=== PATIENT | male | born 1950 | race Caucasian/White ===

== ENCOUNTER → 2018-07-05 13:10 | Outpatient (REF) | payer OTHER, SELFPAY ==
[2018-07-05 14:49] LABS: COMMENT (LAB VIEW ONLY) 116.33 mg/dL; Microalb ug/mg Crea 59.5 ug/mg Cr
== END ==
LOC: LBN 13:10
PROVIDERS: PCP Nurse Practitioner; Visit Provider Nurse Practitioner
DX: E11.9 Type 2 diabetes mellitus without complications (principal); I10 Essential (primary) hypertension
CPT/HCPCS: 82043; 82570

== ENCOUNTER 2018-12-15 07:46 | Outpatient (CLI) | payer OTHER, SELFPAY ==
[2018-12-15 08:49] LABS: HCT 42.4 % (40.0-50.0); Mean Corpuscular Volume 90.8 fL (80-95); Mean Platelet Volume 8.4 fL (8.0-11.0); Platelet Count 166 x1000/uL (130-400); RBC 4.67 m/cumm (4.50-6.00); RBC Distribution Width 13.1 % (11.8-14.1); White Blood Cell Count 4.69 k/cumm (4.4-10.8)
[2018-12-15 09:03] LABS: Hemoglobin A1C 7.8 % (4.5-6.2)
[2018-12-15 09:04] LABS: ALT 51 U/L (12-78); AST 32 U/L (15-37); Albumin 3.7 g/dL (3.4-5.0); Alkaline Phosphatase 74 U/L (46-116); Anion Gap 9.2 mmol/L (3-11); BUN 21 mg/dL (7-18); Bilirubin, Total 0.3 mg/dL (0.2-1.0); CO2 25.8 mmol/L (21.0-32.0); CREATININE 0.97 mg/dL (0.70-1.30); Calcium 9.3 mg/dL (8.5-10.1); Chloride 105 mmol/L (98-107); Cholesterol 164 mg/dL (50-200); Glucose 186 mg/dL (70-100); HDL Cholesterol 37 mg/dL (40-60); LDL CHOLESTEROL 100 mg/dL (<100); Potassium 4.9 mmol/L (3.5-5.1); Sodium 140 mmol/L (136-145); Total Protein 7.4 g/dL (6.4-8.2); Triglyceride 148 mg/dL (30-150)
== END 2018-12-15 08:06 ==
PROVIDERS: PCP Nurse Practitioner; Visit Provider Nurse Practitioner
DX: E11.9 Type 2 diabetes mellitus without complications (principal); I10 Essential (primary) hypertension
CPT/HCPCS: 36415; 80053; 80061; 83721; 85027; 83036

== ENCOUNTER 2019-12-12 07:12 | Outpatient (CLI) | payer OTHER, SELFPAY ==
[2019-12-12 07:55] LABS: Hemoglobin A1C 8.8 % (3.8-5.6)
[2019-12-12 09:36] LABS: ALT 47 U/L (16-63); AST 25 U/L (15-37); Albumin 3.9 g/dL (3.4-5.0); Alkaline Phosphatase 60 U/L (46-116); Anion Gap 13.2 mmol/L (3-11); BUN 21 mg/dL (7-18); Bilirubin, Total 0.4 mg/dL (0.2-1.0); CO2 22.8 mmol/L (21.0-32.0); Calcium 8.7 mg/dL (8.5-10.1); Calculated LDL 108 mg/dL (<100); Chloride 105 mmol/L (98-107); Cholesterol 175 mg/dL (<200); Glucose 179 mg/dL (74-106); HDL Cholesterol 37 mg/dL (40-60); Potassium 4.3 mmol/L (3.5-5.1); Sodium 141 mmol/L (136-145); Total Protein 7.1 g/dL (6.4-8.2); Triglyceride 152 mg/dL (<150)
== END 2019-12-12 07:32 ==
PROVIDERS: PCP Nurse Practitioner; Visit Provider Nurse Practitioner
DX: I10 Essential (primary) hypertension (principal); E11.9 Type 2 diabetes mellitus without complications; E66.9 Obesity, unspecified
CPT/HCPCS: 36415; 80053; 80061; 83036

== ENCOUNTER 2019-12-19 03:11 | Outpatient (CLI) | payer OTHER, SELFPAY ==
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
== END 2019-12-19 03:31 ==
PROVIDERS: PCP Nurse Practitioner; Visit Provider Dietitian, Registered
DX: E11.9 Type 2 diabetes mellitus without complications (principal); Z71.3 Dietary counseling and surveillance
CPT/HCPCS: 97803

== ENCOUNTER 2020-11-13 09:19 | Outpatient (REF) | payer OTHER, SELFPAY ==
[2020-11-13 18:13] LABS: HCT 44.7 % (40.0-50.0); HGB 14.6 g/dL (13.5-17.5); MCH 29.3 pg (27.0-33.0); MCHC 32.7 % (32.0-36.0); MCV 89.8 fL (80-95); MPV 9.4 fL (8.0-11.0); Platelet Count 145 10^3/uL (130-400); RBC 4.98 10^6/uL (4.36-5.78); RDW 13.2 % (11.8-14.1); WBC 4.83 10^3/uL (4.4-10.8)
[2020-11-13 18:29] LABS: ALT 50 U/L (16-63); AST 24 U/L (15-37); Albumin 3.9 g/dL (3.4-5.0); Alkaline Phosphatase 70 U/L (46-116); BUN 18 mg/dL (7-18); Bilirubin, Total 0.5 mg/dL (0.2-1.0); CREATININE 1.03 mg/dL (0.70-1.30); Calcium 8.8 mg/dL (8.5-10.1); Calculated LDL 96 mg/dL (<100); Chloride 104 mmol/L (98-107); Cholesterol 168 mg/dL (<200); Glucose 276 mg/dL (74-106); HDL Cholesterol 43 mg/dL (40-60); Potassium 4.3 mmol/L (3.5-5.1); Sodium 136 mmol/L (136-145); Total Protein 7.2 g/dL (6.4-8.2); Triglyceride 148 mg/dL (<150)
== END 2020-11-13 09:39 ==
LOC: LBN 09:19
PROVIDERS: PCP Nurse Practitioner; Visit Provider Nurse Practitioner
DX: I10 Essential (primary) hypertension (principal); E78.5 Hyperlipidemia, unspecified; E11.3299 Type 2 diabetes mellitus with mild nonproliferative diabetic retinopathy without macular edema, unspecified eye; E66.9 Obesity, unspecified
CPT/HCPCS: 80053; 80061; 85027

== ENCOUNTER 2020-11-15 00:38 | Outpatient (CLI) | payer OTHER, SELFPAY ==
--- NOTE | 2020-11-15 06:45 | DI.US_ITS ---
EXAM: US AAA SCREENING CLINICAL HISTORY: screening for aaa,z72.0,smoker COMPARISON: No exams were available for comparison FINDINGS: Dedicated ultrasound examination of the abdominal aorta was performed. There is no evidence of abdominal aortic aneurysm. Maximum diameter is 2.8 centimetres which is prox imally. There is satisfactory distal tapering of the aorta. The visualized upper aspect of the common iliac arteries exhibit upper normal diameters. IMPRESSION: No evidence of abdominal aortic aneurysm. DATA REPOSITORY:
== END 2020-11-15 00:58 ==
PROVIDERS: PCP Nurse Practitioner; Visit Provider Nurse Practitioner
DX: F17.210 Nicotine dependence, cigarettes, uncomplicated (principal)
CPT/HCPCS: 76706

== ENCOUNTER 2022-01-06 02:59 | Outpatient (CLI) | payer OTHER, SELFPAY ==
[2022-01-06 17:02] LABS: HCT 47.7 % (40.0-50.0); HGB 15.6 g/dL (13.5-17.5); MCHC 32.7 % (32.0-36.0); MCV 88.7 fL (80-95); Platelet Count 178 10^3/uL (130-400); RBC 5.38 10^6/uL (4.36-5.78); RDW 12.5 % (11.8-14.1); RDW-SD 41.1 fL; WBC 5.26 10^3/uL (4.4-10.8)
[2022-01-06 17:43] LABS: Hemoglobin A1C 8.4 % (<5.7)
[2022-01-06 18:42] LABS: ALT 50 U/L (16-63); AST 27 U/L (15-37); Albumin 4.3 g/dL (3.4-5.0); Alkaline Phosphatase 74 U/L (46-116); Anion Gap 8.6 mmol/L (3-11); BUN 15 mg/dL (7-18); Bilirubin, Total 0.8 mg/dL (0.2-1.0); CO2 28.4 mmol/L (21.0-32.0); CREATININE 0.9 mg/dL (0.70-1.30); Calcium 9.1 mg/dL (8.5-10.1); Calculated LDL 100 mg/dL (<100); Chloride 99 mmol/L (98-107); Cholesterol 173 mg/dL (<200); Glucose 107 mg/dL (74-106); HDL Cholesterol 44 mg/dL (40-60); Sodium 136 mmol/L (136-145); Total Protein 7.9 g/dL (6.4-8.2); Triglyceride 147 mg/dL (<150)
== END 2022-01-06 03:00 | disposition home or self-care (01) ==
PROVIDERS: PCP Nurse Practitioner; Visit Provider Nurse Practitioner
DX: E78.5 Hyperlipidemia, unspecified (principal); I10 Essential (primary) hypertension; E11.3299 Type 2 diabetes mellitus with mild nonproliferative diabetic retinopathy without macular edema, unspecified eye
CPT/HCPCS: 36415; 80053; 80061; 85027; 83036

== ENCOUNTER 2022-04-02 15:35 | Emergency (ER) | payer OTHER, SELFPAY ==
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
[2022-04-02 15:35] VITALS: BP 162/93; PULSE 92; RESP 18; TEMP 36.7; O2SAT 98
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
[2022-04-02] MEDS: Ibuprofen 600 MG TAB PO (16:49)
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
[2022-04-02 17:56] VITALS: BP 144/75; PULSE 84; RESP 16; TEMP 37; O2SAT 97
== END 2022-04-02 18:02 | disposition home or self-care (01) ==
PROVIDERS: Emergency Provider Emergency Medicine; PCP Nurse Practitioner
DX: S20.219A Contusion of unspecified front wall of thorax, initial encounter (principal); V49.59XA Passenger injured in collision with other motor vehicles in traffic accident, initial encounter; R07.9 Chest pain, unspecified
CPT/HCPCS: 93005; 99284; 71046; 71120; 93010; 99283

== ENCOUNTER 2022-04-05 08:32 | Emergency (ER) | payer OTHER, SELFPAY ==
[2022-04-05] VITALS (30 sets, daily range): BP systolic 147–192; BP diastolic 80–108; PULSE 63–85; RESP 10–22; TEMP 36.2–37.1; O2SAT 95–99
--- NOTE | 2022-04-05 08:30 | RT.EKG_ITS ---
APPROVED REPORT Exam: Resting ECG Reason for Exam: chest pain Patient Location: E HR:65 bpm ECG Measurements Heart Rate 65 AXIS OH 194 P 25 QRSd 99 QRS -5 QT 403 T 32 QTc 420 Conclusion Sinus rhythm...normal P axis, V-rate 60- 99 Probable lateral infarct, old...Q>35mS, abnormal ST-T, V5-6 I aVL sinus rhythm, left axis, normal intervals, non ischemic
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
[2022-04-05] MEDS: Normal Saline 500 ML 1000 ML IV (09:00)
[2022-04-05] MEDS: Ondansetron 4 MG/2 ML VIAL IVP (09:06)
[2022-04-05] MEDS: MORPHine 4 MG/ML SYR IVP (09:06)
[2022-04-05 09:08] LABS: Abs Immature Grans 0.03 10^3/uL (0.0-0.06); Absolute Basophil Count 0.03 10^3/uL (0.0-0.2); Absolute Eosinophil Count 0.12 10^3/uL (0.0-0.7); Absolute Lymphocyte Count 1.88 10^3/uL (1.2-3.4); Absolute Monocyte Count 0.54 10^3/uL (0.1-0.8); Basophils % 0.5; Eosinophils % 1.8; HGB 15.1 g/dL (13.5-17.5); Immature Grans % 0.5; Lymphocytes % 28.5; MCH 28.7 pg (27.0-33.0); MCHC 32.1 % (32.0-36.0); MCV 89 fL (80-95); MPV 8.1 fL (8.0-11.0); Monocytes % 8.2; Neutrophils % 60.5; Platelet Count 163 10^3/uL (130-400); RBC 5.26 10^6/uL (4.36-5.78); RDW 12.8 % (11.8-14.1); RDW-SD 41.9 fL
[2022-04-05 09:16] LABS: PTT Activated 25.6 sec (21.0-27.5); Prothrombin Time 10.4 sec (9.3-11.0)
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
[2022-04-05 09:22] LABS: ALT 41 U/L (16-63); AST 19 U/L (15-37); Albumin 4.2 g/dL (3.4-5.0); Alkaline Phosphatase 71 U/L (46-116); Anion Gap 6.8 mmol/L (3-11); BUN 17 mg/dL (7-18); Bilirubin, Total 0.6 mg/dL (0.2-1.0); CO2 30.2 mmol/L (21.0-32.0); Calcium 9.3 mg/dL (8.5-10.1); Chloride 103 mmol/L (98-107); Glucose 181 mg/dL (74-106); Potassium 4.5 mmol/L (3.5-5.1); Sodium 140 mmol/L (136-145); Total Protein 8.2 g/dL (6.4-8.2); Troponin I < 50 ng/L (<or=60)
--- NOTE | 2022-04-05 09:32 | DI.VRAD_ITS ---
PROCEDURE INFORMATION: Exam: XR Chest Exam date and time: 04/05/2022 9:11 AM Age: 72 years old Clinical indication: Pain; Left-sided TECHNIQUE: Imaging protocol: XR of the chest. Views: 1 view. COMPARISON: CR XR CHEST 2V PA LATERAL 04/02/2022 5:00 PM FINDINGS: Lungs: Opacities in the left base may represent atelectasis/pneumonia.. Pleural spaces: Unremarkable. No pleural effusion. No pneumothorax. Heart/Mediastinum: Unremarkable. No cardiomegaly. Bones/joints: Unremarkable. IMPRESSION: Opacities in the left base may represent atelectasis/pneumonia.. Dictated and Authenticated by: Feng Craig MD. Ordering:DWAYNE Medina MD
--- NOTE | 2022-04-05 10:09 | DI.VRAD_ITS ---
PROCEDURE INFORMATION: Exam: CT Chest Without Contrast; Diagnostic Exam date and time: 04/05/2022 9:57 AM Age: 72 years old Clinical indication: Pain; Other: Chest; Left-sided TECHNIQUE: Imaging protocol: Diagnostic computed tomography of the chest without contrast. COMPARISON: XR PORTABLE CHEST AP 04/05/2022 9:11 AM FINDINGS: Lungs: Opacities in the lower lobes may represent atelectasis or pneumonia.. Pleural spaces: Moderate left pleural effusion. Smaller right pleural effusion... Heart: Unremarkable. No cardiomegaly. No pericardial effusion. Lymph nodes: Unremarkable. No enlarged lymph nodes. Vasculature: Unremarkable. No aortic aneurysm. Bones/joints: Unremarkable. No acute fracture. Soft tissues: Unremarkable. IMPRESSION: 1. Moderate left pleural effusion. Smaller right pleural effusion... 2. Opacities in the lower lobes may represent atelectasis or pneumonia.. PROCEDURE INFORMATION: Exam: CT Abdomen And Pelvis Without Contrast Exam date and time: 04/05/2022 9:57 AM Age: 72 years old Clinical indication: Pain; Other: Chest; Left-sided TECHNIQUE: Imaging protocol: Computed tomography of the abdomen and pelvis without contrast. COMPARISON: US AAA SCREENING 11/15/2020 7:02 AM FINDINGS: Liver: Normal. No mass. Gallbladder and bile ducts: Normal. No calcified stones. No ductal dilation. Pancreas: Normal. No ductal dilation. Spleen: Normal. No splenomegaly. Adrenal glands: Normal. No mass. Kidneys and ureters: Normal. No hydronephrosis. Stomach and bowel: Unremarkable. No obstruction. No mucosal thickening. Appendix: No evidence of appendicitis. Intraperitoneal space: Unremarkable. No free air. No significant fluid collection. Vasculature: Unremarkable. No abdominal aortic aneurysm. Lymph nodes: Unremarkable. No enlarged lymph nodes. Urinary bladder: Unremarkable as visualized. Reproductive: Unremarkable as visualized. Bones/joints: Unremarkable. No acute fracture. Soft tissues: Mild inflammatory changes in the subcutaneous fat around the umbilicus. May be due to prior surgery. IMPRESSION: Mild inflammatory changes in the subcutaneous fat around the umbilicus. May be due to prior surgery. Dictated and Authenticated by: Feng Craig MD. Ordering:DWAYNE Medina MD
[2022-04-05] MEDS: Ketorolac 15 MG/ML VIAL IVP (10:33)
[2022-04-05] MEDS: Amoxicillin 875/Clav. 125 TAB PO (10:33)
[2022-04-05] MEDS: Azithromycin 250 MG TAB 500 MG PO (10:33)
[2022-04-05 12:28] LABS: Troponin I < 50 ng/L (<or=60)
== END 2022-04-05 12:47 | disposition home or self-care (01) ==
PROVIDERS: Emergency Provider Emergency Medicine; PCP Nurse Practitioner
DX: J98.11 Atelectasis (principal); J90 Pleural effusion, not elsewhere classified; R07.9 Chest pain, unspecified
CPT/HCPCS: 36415; 71250; 80053; 93005; 96361; 96374; 96375; 99285; 71045; 74176; 84484; 85025; 85610; 85730; 93010; 99284; J1885; J2270; J2405

== ENCOUNTER 2023-04-30 02:14 | Outpatient (CLI) | payer OTHER, SELFPAY ==
[2023-04-30 12:50] LABS: ALT 53 U/L (16-63); AST 27 U/L (15-37); Albumin 3.9 g/dL (3.4-5.0); Alkaline Phosphatase 57 U/L (46-116); Anion Gap 11.4 mmol/L (3-11); BUN 13 mg/dL (7-18); Bilirubin, Total 0.6 mg/dL (0.2-1.0); CO2 23.6 mmol/L (21.0-32.0); CREATININE 1.1 mg/dL (0.70-1.30); Calcium 8.7 mg/dL (8.5-10.1); Calculated LDL 91 mg/dL (<100); Chloride 106 mmol/L (98-107); Cholesterol 161 mg/dL (<200); Estimated GFR 71.77 (mL/min/1.73m2); Glucose 122 mg/dL (74-106); HDL Cholesterol 49 mg/dL (40-60); Potassium 3.9 mmol/L (3.5-5.1); Sodium 141 mmol/L (136-145); Total Protein 7.6 g/dL (6.4-8.2); Triglyceride 109 mg/dL (<150)
== END 2023-04-30 02:15 | disposition home or self-care (01) ==
LOC: LBO 02:14
PROVIDERS: PCP Nurse Practitioner; Visit Provider Nurse Practitioner
DX: I10 Essential (primary) hypertension (principal); E78.5 Hyperlipidemia, unspecified
CPT/HCPCS: 36415; 80053; 80061

== ENCOUNTER 2023-05-28 02:40 | Outpatient (CLI) | payer OTHER, SELFPAY ==
[2023-05-28] MEDS: Albuterol HFA 18 GM 200 PUFF INH IH (09:09)
[2023-05-28] MEDS: Inhaler, Assist Device 1 EACH MC (09:10)
--- NOTE | 2023-05-29 09:16 | W.PFT ---
Date of service: 05/28/23 Time of Service: 08:01 Pulmonary Function Test Result Indications: Cough Interpretation Spirometry: There is no airflow limitation. No significant bronchodilator response. Lung Volumes: Normal lung volumes. Diffusion Capacity: Normal diffusion. Airway Pressure: Normal airways resistance. Impression Normal pulmonary function testing Clinical Correlation therefore is recommended.
== END 2023-05-28 02:41 | disposition home or self-care (01) ==
LOC: RT 02:40
PROVIDERS: PCP Nurse Practitioner; Visit Provider Student in an Organized Health Care Education/Training Program
DX: R05.9 Cough, unspecified (principal)
CPT/HCPCS: 94060; 94726; 94729

== ENCOUNTER 2023-10-22 02:20 | Outpatient (CLI) | payer OTHER, SELFPAY ==
[2023-10-22] MEDS: Methacholine 100 MG VIAL IH (14:49)
[2023-10-22] MEDS: Albuterol HFA 18 GM 200 PUFF INH IH (14:49)
[2023-10-22] MEDS: Inhaler, Assist Device 1 EACH MC (14:50)
--- NOTE | 2023-10-30 08:17 | W.PFT ---
Date of service: 10/22/23 Time of Service: 12:58 Pulmonary Function Test Result Indications: Cough Interpretation Spirometry: There is no baseline airflow limitation. There was a 20% decrease in FEV1 with administration of 8mg/mL methacholine. Impression Positive methacholine challenge test. Clinical Correlation therefore is recommended.
== END 2023-10-22 02:21 | disposition home or self-care (01) ==
LOC: RT 02:20
PROVIDERS: PCP Nurse Practitioner; Visit Provider Student in an Organized Health Care Education/Training Program
DX: J45.998 Other asthma (principal)
CPT/HCPCS: 94060; 94070; J7674

== ENCOUNTER 2024-06-01 12:25 | Outpatient (CLI) | payer OTHER, SELFPAY ==
[2024-06-01 09:17] LABS: Abs Immature Grans 0.02 10^3/uL (0.0-0.06); Absolute Basophil Count 0.03 10^3/uL (0.0-0.2); Absolute Eosinophil Count 0.12 10^3/uL (0.0-0.7); Absolute Lymphocyte Count 2.05 10^3/uL (1.2-3.4); Absolute Monocyte Count 0.39 10^3/uL (0.1-0.8); Absolute Neutrophil Count 2.12 10^3/uL (1.2-6.7); Basophils % 0.6 %; Eosinophils % 2.5 %; HCT 43.7 % (40.0-50.0); HGB 14.5 g/dL (13.5-17.5); Immature Grans % 0.4 %; Lymphocytes % 43.3 %; MCH 29.2 pg (27.0-33.0); MCHC 33.2 % (32.0-36.0); MCV 88 fL (80-95); MPV 8.6 fL (8.0-11.0); Monocytes % 8.2 %; Platelet Count 125 10^3/uL (130-400); RBC 4.96 10^6/uL (4.36-5.78); RDW 13.2 % (11.8-14.1); RDW-SD 42.4 fL; WBC 4.73 10^3/uL (4.4-10.8)
[2024-06-01 09:57] LABS: ALT 52 U/L (16-63); AST 27 U/L (15-37); Albumin 3.8 g/dL (3.4-5.0); Alkaline Phosphatase 76 U/L (46-116); Anion Gap 9.7 mmol/L (3-11); BUN 14 mg/dL (7-18); Bilirubin, Total 0.41 mg/dL (0.2-1.0); CO2 25.3 mmol/L (21.0-32.0); Calcium 9.2 mg/dL (8.5-10.1); Calculated LDL 91 mg/dL (<100); Chloride 105 mmol/L (98-107); Cholesterol 168 mg/dL (<200); Estimated GFR 79.97 (mL/min/1.73m2); Glucose 187 mg/dL (74-106); HDL Cholesterol 47 mg/dL (40-60); Potassium 4.3 mmol/L (3.5-5.1); Sodium 140 mmol/L (136-145); Total Protein 7.6 g/dL (6.4-8.2); Triglyceride 153 mg/dL (<150)
[2024-06-01 10:05] LABS: Hemoglobin A1C 8.7 % (<5.7)
== END 2024-06-01 12:26 | disposition home or self-care (01) ==
LOC: LBO 12:28
PROVIDERS: PCP Nurse Practitioner; Visit Provider Nurse Practitioner
DX: E78.5 Hyperlipidemia, unspecified (principal); I10 Essential (primary) hypertension; E11.9 Type 2 diabetes mellitus without complications
CPT/HCPCS: 36415; 80053; 80061; 83036; 85025

== ENCOUNTER 2025-03-10 02:51 | Outpatient (CLI) | payer OTHER, SELFPAY ==
[2025-03-10 08:48] LABS: ALT 41 U/L (16-63); AST 24 U/L (15-37); Albumin 3.6 g/dL (3.4-5.0); Alkaline Phosphatase 99 U/L (46-116); Anion Gap 8.7 mmol/L (3-11); BUN 14 mg/dL (7-18); Bilirubin, Total 0.5 mg/dL (0.2-1.0); CO2 26.3 mmol/L (21.0-32.0); Calcium 9.1 mg/dL (8.5-10.1); Calculated LDL 77 mg/dL (<100); Chloride 102 mmol/L (98-107); Cholesterol 150 mg/dL (<200); Estimated GFR 79.97 (mL/min/1.73m2); Glucose 285 mg/dL (74-106); HDL Cholesterol 50 mg/dL (>or=40); Potassium 4.5 mmol/L (3.5-5.1); Sodium 137 mmol/L (136-145); Total Protein 7.7 g/dL (6.4-8.2); Triglyceride 117 mg/dL (<150)
== END 2025-03-10 02:52 | disposition home or self-care (01) ==
PROVIDERS: PCP Nurse Practitioner; Visit Provider Internal Medicine Hematology & Oncology
DX: I10 Essential (primary) hypertension (principal)
CPT/HCPCS: 36415; 80053; 80061